=== PATIENT | male | born 2000 | race Caucasian/White ===

== ENCOUNTER → 2021-01-10 | Emergency (ER) | payer OTHER ==
[~2021-01-10] VITALS: Ht 177.8 cm; Wt 63.6 kg
[2021-01-10 22:30] VITALS: BP 124/81
[2021-01-10] MEDS: OxyCODONE HCL 5 MG IR TABLET PO ONE (22:33)
== END | disposition home or self-care (01) ==
LOC: EMS 19:40
DX: S82.891A Other fracture of right lower leg, initial encounter for closed fracture (principal); F17.210 Nicotine dependence, cigarettes, uncomplicated; W18.39XA Other fall on same level, initial encounter; Y93.89 Activity, other specified; Y92.89 Other specified places as the place of occurrence of the external cause; Y99.8 Other external cause status
CPT/HCPCS: 99283